=== PATIENT | female | born 1975 | race African-American/Black ===

== ENCOUNTER 2019-05-03 05:59 | Emergency (ER) | payer OTHER ==
[~2019-05-03] VITALS: Ht 170.2 cm; Wt 94.3 kg
--- OUTSIDE RECORDS SUMMARY | 2019-05-03 06:02 | XMS REPORT | Summary of Care ---
Author Author [facility] - Health Organization [facility] - Health Address Unknown Phone Unavailable Care Team Providers Care Bakery Team Leader Name Role Phone Ramez Wood PCP Mahad Duran MD Unavailable Ramez Wood Unavailable Reason for Visit * Reason Comments Follow-up Diabetes Mellitus II Encounter Details Care Team Description Date Type Department Elisa Catalan MD [address] [place] [address] [phone] Type 2 diabetes mellitus without complication, unspecified whether long-term insulin use (Primary Dx); Mixed hyperlipidemia; Vitamin D deficiency 01/08/2019 Office Visit [facility] [address] [place] [phone] Allergies No Known Allergiesdocumented as of this encounter (statuses as of 01/08/2019) Medications End Date Status Medication Sig Dispensed Refills Start Date Active atorvastatin 20 mg TAKE 1 TABLET 90 tablet 1 tabletIndications: Mixed BY MOUTH AT 9 hyperlipidemia BEDTIME Active TRULICITY 1.5 mg/0.5 mL INJECT 1 6 mL 1 PnIjIndications: Type 2 SYRINGE 9 diabetes mellitus without SUBCUTANEOUSL complication, unspecified Y ONCE A WEEK whether joint terminal attack controller insulin use Active metformin ER 500 mg 24 hr Take 2 360 tablet 1 tablet tablets by 9 mouth 2 (two) times daily. Active flash glucose scanning 1 Each daily. 1 Each 0 reader (FREEEnure NetworksYLE KRISH 9 14 DAY READER) MiscIndications: Type 2 diabetes mellitus without complication, unspecified whether long-term insulin use Active flash glucose sensor 1 Each every 2 Kit 4 (FREESTYLE KRISH 14 DAY 14 (fourteen) 9 SENSOR) KitIndications: days. Type 2 diabetes mellitus without complication, unspecified whether long-term insulin use Active canagliflozin (INVOKANA) Take 1 tablet 30 tablet 5 300 mg tabletIndications: by mouth 9 Type 2 diabetes mellitus daily. without complication, unspecified whether joint terminal attack controller insulin use 01/08/2019 Discontinued flash glucose scanning 1 Each daily. 1 Each 0 reader (FREESTYLE KRISH 8 READER) MiscIndications: Type 2 diabetes mellitus without complication, without long-term current use of insulin 01/08/2019 Discontinued flash glucose sensor 1 Each every 10 Kit 1 (FREESTYLE KRISH SENSOR) 10 (ten) 8 KitIndications: Type 2 days. diabetes mellitus without complication, without long-term current use of insulin 01/08/2019 Discontinued empagliflozin (JARDIANCE) Take 25 mg by 90 tablet 2 25 mg TabIndications: mouth daily. 9 Uncontrolled type 2 diabetes mellitus without complication, without long-term current use of insulin 01/08/2019 Discontinued methocarbamol 500 mg Take 1 tablet 30 tablet 0 tabletIndications: by mouth at 9 Shoulder weakness, bedtime as Stiffness of left needed shoulder joint, Left arm (muscle pain spasms). documented as of this encounter (statuses as of 01/08/2019) Active Problems Problem Noted Date Stiffness of left shoulder joint 11/20/2018 Shoulder weakness 11/20/2018 Left arm pain 11/20/2018 Hot flashes 10/12/2018 Obesity, Class I, BMI 30-34.9 05/04/2014 Vitamin D deficiency 05/04/2014 S/P abdominoplasty 09/10/2013 Inadequate pain control 08/28/2013 Pannus, abdominal 07/12/2013 No diabetic retinopathy in both eyes 03/04/2013 Lump or mass in breast 11/27/2012 Overview: Mammogram interpretation by Radiology is a lipoma. Patient instructed to report any change on monthly breast exam. Otherwise f/u in 1 year with mammogram. Well woman exam with routine gynecological exam 11/19/2012 Mixed hyperlipidemia 10/15/2012 Uncontrolled type 2 diabetes mellitus without complication, without 11/07/2006 long-term current use of insulin documented as of this encounter (statuses as of 01/08/2019) Resolved Problems Problem Noted Date Resolved Date Lump or mass in breast 11/19/2012 11/27/2012 Overview: Mammogram shows lipoma per radiology. Patient instructed to report any changes. F/U 1 year. 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 documented as of this encounter Last Filed Vital Signs Reading Time Taken Comments Vital Sign 122/78 01/08/2019 1:32 PM CDT Blood Pressure 76 01/08/2019 1:26 PM CDT Pulse 36.8 C (98.3 F) 01/08/2019 1:26 PM CDT Temperature 20 01/08/2019 1:26 PM CDT Respiratory Rate 100% 01/08/2019 1:26 PM CDT Oxygen Saturation - - Inhaled Oxygen Concentration 96.1 kg (211 lb 14.4 oz) 01/08/2019 1:26 PM CDT Weight 170.2 cm (5' 7") 01/08/2019 1:26 PM CDT Height 33.19 01/08/2019 1:26 PM CDT Body Mass Index documented in this encounter Patient Instructions * Patient Instructions* Elisa Catalan MD - 01/08/2019 1:30 PM CDT Change Jardiance to Invokana 300mg once daily, let us know if you have any urine infection. Continue Trulicity 1.5mg weekly. Continue Metformin XR 500mg 2 tablets twice daily. Continue Lipitor. documented in this encounter Progress Notes * Elisa Catalan MD - 01/08/2019 1:30 PM CDT CC: f/u DM2 HPI Patient is a 43 year old /White female who is here today for f/u Uncont rolled Diabetes Mellitus Type 2 and HLD/ obesity. Patient's diabetes was dx in 2002 after gestational diabetes during 5th pregnanc y. No complications. Currently on Trulicity 1.5 mg/week, Metformin ER 1000 mg BID, and Jardiance 25 m g/day (Invokana was changed to Jardiance). Checks BGs 1xd, low 100s, no hypoglycemias, states she has been eating well, exe rcising 3 x week. H/o hypoglycemias with Glipizide in the past. WEIGHT stable. SHe prefers to be changed to Invokana as she thinks it worked better. HLP: On Atorvastatin 20mg d, compliant. Last Lab Results Health Maintenance Due HGB A1C (%) Date Value 04/02/2013 8.5 (H) POCT HBA1C (%) Date Value 01/08/2019 7.7 (A) Diabetes related Health Maintenance Due Topic Date Due EYE EXAM 1985 Previous Pneumococcal / Influenza Immunizations No immunizations on file. Recent Vice Admiral Visits None Recent Ophthalmology Visits None CREATININE Date Value 10/12/2018 0.50 mg/dL 08/20/2014 0.60 MG/DL MICROALB U Date Value 10/12/2018 4 ug/mL 05/06/2014 114 uG/ML (H) No results found for: CHOL No results found for: TRIG No results found for: LDL Diabetes Relevant Medication Classes Last refreshed: 01/08/2019 2:02 PM: Prescribed WERNER inhibitor No Last refreshed: 01/08/2019 2:02 PM: Prescribed ARBs No Last refreshed: 01/08/2019 2:02 PM: Prescribed statins Yes Last refreshed: 01/08/2019 2:02 PM: Prescribed antiplatelets No Last refreshed: 01/08/2019 2:02 PM: Prescribed aspirin No Last refreshed: 01/08/2019 2:02 PM: On Fibrates No Current as of: 01/08/2019 2:02 PM HISTORY Past Medical History: Diagnosis Date Diabetes mellitus 2002 2 months post delivery diagnosed self with glucose of >500 Gestational diabetes 2002 5th baby Hyperlipidemia 2004 Obesity (BMI 30.0-34.9) Vitamin D deficiency Meds: Current Outpatient Medications: metformin ER 500 mg 24 hr tablet, Take 2 tablets by mouth 2 (two) times gina ly., Disp: 360 tablet, Rfl: 1 TRULICITY 1.5 mg/0.5 mL PnIj, INJECT 1 SYRINGE SUBCUTANEOUSLY ONCE A WEEK, Disp: 6 mL, Rfl: 1 atorvastatin 20 mg tablet, TAKE 1 TABLET BY MOUTH AT BEDTIME, Disp: 90 tabl et, Rfl: 1 empagliflozin (JARDIANCE) 25 mg Tab, Take 25 mg by mouth daily., Disp: 90 t ablet, Rfl: 2 REVIEW OF SYSTEMS Constitutional: No fever Eyes: No visual changes. Cardiovascular: denies chest pain Respiratory: No SOB. PHYSICAL EXAM BP 122/78 | Pulse 76 | Temp 36.8 C (98.3 F) (Oral) | Resp 20 | Ht 5' 7" (1.702 m) | Wt 211 lb 14.4 oz (96.1 kg) | LMP 01/05/2019 (Exact Date) | SpO2 100% | BMI 33.19 kg/m General: alert, oriented times three, no apparent distress, appearing age approp riate. Lungs: no wheezes or crackles. Heart: regular rate and rhythm, no murmurs, gallops or rubs. Neuro: unremarkable without focal findings. Extremities/Musculoskeletal: no cyanosis, no edema . Sensory exam of the foot is normal. Monofilament exam with sensation Right: 5/5, Left: 5/5. Lesions absent Ulcers Absent Peripheral pulses present 2+. LABS: Ref. Range 10/12/2018 11:03 01/08/2019 00:00 MICROALB U Latest Ref Range: 0 - 45 ug/mL 4 MICROAL/CR Latest Ref Range: 0-3,500 ug/mmol creatinine 687 POCT HBA1C Latest Ref Range: 4 - 6 % 7.7 (A) ASSESSMENT Uncontrolled Diabetes Mellitus Type 2 A1c 7.7 PLAN Patient Instructions Change Jardiance to Invokana 300mg once daily, let us know if you have any urine infection. Continue Trulicity 1.5mg weekly. Continue Metformin XR 500mg 2 tablets twice daily. Continue Lipitor. HLD: At goal PLAN: Continue Atorvastatin 20 mg bedtime Vit D Def: Last visit Vit D level 41 EDUCATION Counseled on this visit about:Glycemic/hemoglobin A1C targets Importance of adhering to the medical regimen outlined above Glucose monitoring and importance Diet education Proper foot care Daily exercise plan Weight loss * Yenifer Bell MA - 01/08/2019 1:30 PM CDT PT here for DM 2. Patient has pain 0 /10. Medications and allergies have been r eviewed with patient. Patient's last eye exam was about 3 months ago. Patient's last flu vaccination was 2017. Patient is a diabetic, so I did request shoes to be removed for foot exam. Patient informed to bring glucometer to all endocrine visits. documented in this encounter Plan of Treatment Care Team Description Date Type Specialty Yaz Fried MBBS [address] [place] [phone] 04/23/2019 Office Visit Endocrinology Diabetes & Metabolism Health Maintenance Due Date Last Done Comments PNEUMOCOCCAL 0-64 YEARS 1981 COMBINED SERIES (1 of 1 - PPSV23) EYE EXAM 1985 DTaP,Tdap,and Td Vaccines 1994 (1 - Tdap) MAMMOGRAM 09/08/2017 09/08/2016, 11/26/2012 INFLUENZA VACCINE 02/10/2019 HgA1C 03/10/2019 09/07/2018, 09/07/2017, 03/09/2017, Additional history exists FOOT EXAM 09/08/2019 09/07/2018, 09/07/2018, 03/09/2017 LDL-C 09/08/2019 09/07/2018, 09/07/2017, 03/09/2017, Additional history exists PAP SMEAR 09/08/2019 09/07/2016, 11/19/2012, 12/06/2004 CREATININE (SERUM) 10/13/2019 10/12/2018, 03/09/2017, 03/04/2016, Additional history exists URINE MICROALBUMIN 10/13/2019 10/12/2018, 03/09/2017, 03/04/2016, Additional history exists documented as of this encounter Procedures Comments Procedure Name Priority Date/Time Associated Diagnosis POCT HEMOGLOBIN A1C TEST Routine 01/08/2019 Type 2 diabetes mellitus without complication, unspecified whether joint terminal attack controller insulin use documented in this encounter Results * POCT HEMOGLOBIN A1C TEST (01/08/2019) POCT HBA1C 7.7 (A) 4 - 6 % Specimen Blood - CAPILLARY documented in this encounter Visit Diagnoses Diagnosis Type 2 diabetes mellitus without complication, unspecified whether long-term insulin use - Primary Mixed hyperlipidemia Vitamin D deficiency Unspecified vitamin D deficiency documented in this encounter Insurance Type Payer Benefit Subscriber ID Effective Phone Address Plan / Dates Group HMO/PPO/POS CIGNA CIGNA II [id number] resent documented as of this encounter 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
--- OUTSIDE RECORDS SUMMARY | 2019-05-03 06:02 | XMS REPORT ---
Author Author [facility] Address Unknown Phone Unavailable Care Team Providers Care Avionics Repair Technician Name Role Phone Unavailable Unavailable Payers Payer Name Policy Type Policy Number Effective Date Expiration Date Problems This patient has no known problems. Allergies, Adverse Reactions, Alerts Allergy Name Allergy Type Status Severity Reaction(s) Onset Date Inactive Date Treating Clinician Comments No Known Allergies DA Active U 2011-06-24 00:00:00 Medications This patient has no known medications.
--- OUTSIDE RECORDS SUMMARY | 2019-05-03 06:02 | XMS REPORT | Summary of Care ---
Author Author [facility] - Health Organization [facility] - Health Address Unknown Phone Unavailable Care Team Providers Care Manager Market Development Name Role Phone Ramez Wood PCP Mahad Duran MD Unavailable Ramez Wood Unavailable Reason for Visit * Reason Comments Follow-up Diabetes Mellitus II Encounter Details Care Team Description Date Type Department Elisa Catalan MD [address] [place] [address] [phone] Type 2 diabetes mellitus without complication, unspecified whether half-way insulin use (Primary Dx); Mixed hyperlipidemia; Vitamin D deficiency 01/08/2019 Office Visit [facility] [address] [place] [phone] Allergies No Known Allergiesdocumented as of this [...] complication, unspecified Y ONCE A WEEK whether proposal director insulin use Active metformin ER 500 mg 24 hr Take 2 360 tablet 1 tablet tablets by 9 mouth 2 (two) times daily. Active flash glucose scanning 1 Each daily. 1 Each 0 reader (FREEQuanDxYLE KRISH 9 14 DAY READER) MiscIndications: Type 2 diabetes mellitus without complication, unspecified whether half-way insulin use Active flash glucose sensor 1 Each every 2 Kit 4 (FREESTYLE KRISH 14 DAY 14 (fourteen) 9 SENSOR) KitIndications: days. Type 2 diabetes mellitus without complication, unspecified whether half-way insulin use Active canagliflozin (INVOKANA) Take 1 tablet 30 tablet 5 300 mg tabletIndications: by mouth 9 Type 2 diabetes mellitus daily. without complication, unspecified whether proposal director insulin use 01/08/2019 Discontinued flash glucose scanning [...] hypertension 11/07/2006 10/15/2012 Overview: ICD10 Diagnosis Term Railroad Yard Worker Utility documented as of this encounter (statuses [...] this encounter Patient Instructions * Patient Instructions* lEisa Catalan MD - 01/08/2019 1:30 PM CDT [...] Influenza Immunizations No immunizations on file. Recent Gas Engineer Visits None Recent Ophthalmology Visits None CREATININE [...] Description Date Type Specialty Yaz Fried MBBS [address] [place] [phone] 04/23/2019 Office Visit Endocrinology Diabetes & [...] 2 diabetes mellitus without complication, unspecified whether proposal director insulin use documented in this encounter Results * POCT HEMOGLOBIN A1C TEST (01/08/2019) POCT HBA1C 7.7 (A) 4 - 6 % Specimen Blood - CAPILLARY documented in this encounter Visit Diagnoses Diagnosis Type 2 diabetes mellitus without complication, unspecified whether half-way insulin use - Primary Mixed hyperlipidemia Vitamin D deficiency Unspecified vitamin D deficiency documented in this encounter Insurance Type Payer Benefit Subscriber ID Effective Phone Address Plan / Dates Group HMO/PPO/POS CIGNA CIGNA II [id number] 2018-P resent documented as of this encounter 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
[2019-05-03] MEDS ORDERED: IBUPROFEN 600 MG TAB PO STA (06:12)
[2019-05-03] MEDS ORDERED: IBUPROFEN 200 MG TAB ONE (06:20)
== END 2019-05-03 06:53 | disposition home or self-care (01) ==
LOC: FSED 05:59
DX: G89.11 Acute pain due to trauma (principal); T63.001A Toxic effect of unspecified snake venom, accidental (unintentional), initial encounter; Y99.0 Civilian activity done for income or pay; E11.9 Type 2 diabetes mellitus without complications; E78.5 Hyperlipidemia, unspecified; Z98.84 Bariatric surgery status
CPT/HCPCS: 99282